=== PATIENT | female | born 1985 | race Caucasian/White ===

== ENCOUNTER 2019-12-02 07:29 | Emergency (ER) | payer BC ==
[~2019-12-02] VITALS: Ht 160 cm; Wt 59.0 kg
[2019-12-02] MEDS ORDERED: ADDERALL 10 MG10 MG PO (07:46)
[2019-12-02] MEDS ORDERED: CLONAZEPAM 0.50.5 M1 PO (07:47)
[2019-12-02] MEDS ORDERED: FLEXERIL PO (09:14)
[2019-12-02 09:22] VITALS: BP 112/73
== END 2019-12-02 09:24 | disposition home or self-care (01) ==
LOC: M.ERS 07:29
DX: S32.018A Other fracture of first lumbar vertebra, initial encounter for closed fracture (principal); W10.8XXA Fall (on) (from) other stairs and steps, initial encounter; Y93.89 Activity, other specified; Y92.89 Other specified places as the place of occurrence of the external cause; Y99.8 Other external cause status